=== PATIENT | female | born 1995 | race Two or more races ===

== ENCOUNTER 2017-02-04 18:32 | Inpatient (IN) | payer MEDICAID, OTHER ==
[2017-02-04] MEDS ORDERED: OXYTOCIN 10 UNITS/ML VIAL ONE (19:04)
[2017-02-04] MEDS ORDERED: LIDOCAINE Viscous 2% 15 ML UDCUP ONE (19:04)
[2017-02-04] MEDS ORDERED: MINERAL OIL 25 ML BOT ONE (19:04)
[2017-02-04] MEDS ORDERED: LIDOCAINE 1% (PRES FREE) 30 ML VIAL ONE (19:04)
[2017-02-04] MEDS ORDERED: LACTATED RINGERS 1,000 ML ONE (19:04)
[2017-02-04] MEDS ORDERED: IV START KIT ONE (19:04)
[2017-02-04] MEDS ORDERED: PUMP TUBING ONE (19:05)
[2017-02-04] MEDS ORDERED: SODIUM CHLORIDE 0.9% FLUSH 10 ML ONE (19:05)
[2017-02-04] MEDS ORDERED: DINOPROSTONE 10 MG SUP VG ONE (19:36)
--- NOTE | 2017-02-04 19:53 | PCMAN ---
OB Admission Note - History : 3 Term: 2 : 0 Abortions (S&E): 0 Livin Gestational Age (weeks): 41 Days (#/7): 0 Admit Cervical Dilation:: 2cm Admit Cervical Effacement (%):: 70 Admit Station:: -3 Membrane Status: Intact Contractions: No Contraction Frequency:: q 3-6 min Heart Rate:: 130 Status:: reassuring EFW:: 7 Lbs Summary of Course:: Presented late to care at approx. 26 wks. Dating done by 32 week ultrasound. - Labs Blood Type: A (+) positive Rubella Status: Immune GBS Status: Negative Abnormal Labs: None - Review of Systems 12 point ROS wnl. - Physical Exam General: No Afebrile, No Acute Distress, No Mild Distress, No Moderate Distress , No Severe Distress, No Other Lungs: Clear to Auscultation Bilaterally Cardiovascular: Regular Rate and Rhythm Abdomen: Other (gravid, non-tender, Vtx by u/s done by RN) Extremities: Full ROM - Problems (1) Post-dates Status: Acute Code: O48.0Assessment/Plan: 21 yo @ 41 wks by late 32 wk u/s, presented late to care, here for IOL for postdates. FHTs reassuring, already with some contractions only mildly felt. GBS negative. -will admit for IOL -given unfavorable cervix, will place Cervidil
[2017-02-04 20:30] LABS: HEMOGLOBIN 12.3 gm/l (12.0-16.0); MEAN CELL VOLUME 91.6 fl (81.0-99.0); MEAN CORPUSCULAR HEMOGLOBIN 30.4 pg (27.0-31.0); MEAN CORPUSCULAR HGB CONC 33.2 g/dl (33.0-37.0); RED CELL DISTRIBUTION WIDTH 12.9 % (11.5-14.5)
--- NOTE | 2017-02-04 22:45 | PDOC36 ---
Provider Note Subject: 21 yo @ 41 wks here for IOL for postdates. As she is having contractions on the monitor almost every 2 minutes, I am not able to place any cervical ripening agent, nor start Pitocin. We discussed placing a hammond bulb and pt agrees with mechanical induction approach. SVE 3cm/80%/-2, FHTs reassuring. -hammond bulb with 35ml NS easily placed -will wait until hammond bulb comes out and then consider AROM
[2017-02-04] MEDS ORDERED: OXYTOCIN IN NS 500 ML IV ONE (23:52)
[2017-02-05] MEDS ORDERED: OXYTOCIN IN NS 500 ML IV PRN (08:52)
--- NOTE | 2017-02-05 09:07 | PDOC36 ---
Provider Note Note: SUBJECTIVE: Patient comfortable this morning, hammond bulb fell out this morning. OBJECTIVE: VS: AFVSS FHT: 140s, moderate variability, positive accels, no decels, category I [place]: Mild contractions every 5-10 minutes SVE: 370/-2 posterior ASSESSMENT: 21 yo here for postdates IOL PLAN: Postdates IOL: Hammond now out, Alston Score is 8, will start Pitocin and recheck this afternoon and see if we can AROM.
[2017-02-05] MEDS: LACTATED RINGERS 1,000 ML IV SCH ×3 (10:06→19:19)
[2017-02-05 11:21] VITALS: BMI 27.6
--- NOTE | 2017-02-05 13:34 | PDOC36 ---
Provider Note Note: SUBJECTIVE: Starting to feel contractions OBJECTIVE: VS: AFVSS FHT: Category I [place]: q5 min SVE: DNE ASSESSMENT: 21 yo here for postdates IOL PLAN: Continue pitocin until 3 pm will recheck cervix and AROM if possible.
[2017-02-05] MEDS ORDERED: BLISTEX LIPSTICK 1 EACH TP ONE (16:30)
[2017-02-05] MEDS ORDERED: BLISTEX LIPSTICK 1 EACH TP PRN (17:10)
--- NOTE | 2017-02-05 18:30 | PDOC36 ---
Provider Note Note: SUBJECTIVE: Having painful contractions OBJECTIVE: VS: AFVSS FHT: 150s Category I [place]: q2-3 min SVE: /-2 ASSESSMENT: 21 yo at 41 weeks here for postdates IOL PLAN: On Pitocin, making change. I AROM'd patient. Continue expectant management.
[2017-02-05] MEDS: FENTANYL 100 MCG/2 ML VIAL IV PRN ×2 (19:03→19:10)
[2017-02-05] MEDS ORDERED: FENTANYL 100 MCG/2 ML VIAL ONE (19:03)
[2017-02-05] MEDS ORDERED: OXYTOCIN IN NS 334 ML IV PRN (19:08)
[2017-02-05] MEDS ORDERED: LIDOCAINE 1% (PRES FREE) 30 ML VIAL IF ONE (19:16)
[2017-02-05] MEDS ORDERED: LORAZEPAM 2 MG/ML 1ML SDV IV ONE (19:45)
[2017-02-05] MEDS ORDERED: OXYCODONE HCL 5 MG TABLET PO PRN (20:29)
[2017-02-05] MEDS ORDERED: ACETAMINOPHEN 325 MG TABLET PO PRN (20:29)
[2017-02-05] MEDS ORDERED: LANOLIN 50 APPLIC/7G TUBE TP PRN (20:29)
[2017-02-05] MEDS ORDERED: SENNOSIDES 8.6 MG TABLET PO PRN (20:29)
[2017-02-05] MEDS ORDERED: HYDROCODONE/ACETAMINOPHEN 5/325MG TABLET PO PRN (20:29)
[2017-02-05] MEDS ORDERED: BENZOCAINE/MENTHOL 60 APPLIC/BOT TP PRN (20:29)
[2017-02-05] MEDS ORDERED: LACTATED RINGERS 1,000 ML IV PRN (20:29)
[2017-02-05] MEDS ORDERED: DOCUSATE SODIUM 100 MG CAPSULE PO PRN (20:29)
[2017-02-05] MEDS: IBUPROFEN 600 MG TABLET PO PRN (21:01)
--- NOTE | 2017-02-05 21:52 | PCMDEL ---
Delivery Note - Delivery Delivery (Date): 02/05/17 Delivery (Time): 18:52 Gender: Male Length: 1 ft 8.25 in Position: OA Umbilical Cord: 3 Vessel Delayed Cord Clamping:: < 1-2 min 1 Minute Total: 9 5 Minute Total: 9 Placenta:: Intact EBL:: 300 mL Perineum:: 2nd degree perineal Suture:: 2-0 Vicryl x 2 Anesthesia/Meds:: 1% lidocaine, 100 mcg fentanyl & 1 mg of ativan bc of anxiety during repair Length ROM:: 1 hr Comments:: of a live female in the OA position over an intact perineum. The body easily delivered and the baby was placed on the mother's abdomen where she was attended to by nursing staff. There was delayed cord clamping by 1 minute(s). The placenta was delivered spontaneously and was noted to be intact. A 3 vessel cord was also noted. A repair was performed with 2-0 vicryl. The patient was very anxious was having a lot of trouble relaxing and had to be given 100 mcg of fentanyl and 1 mg of ativan before the repair could be perfomed.
[2017-02-06 06:48] LABS: HEMATOCRIT 28.3 % (37.0-47.0); HEMOGLOBIN 9.4 gm/l (12.0-16.0)
[2017-02-06] MEDS ORDERED: FERROUS SULFATE (65 Fe) 325 MG TABLET PO SCH (09:00)
--- NOTE | 2017-02-06 09:12 | PDOC44 ---
- Subjective Day: 1 Reports Pain Tolerable, Reports , Reports Lochia Light, Reports Tolerating Regular Diet (Pt doing well, desires dc home later today), Denies Nausea, Denies Vomiting, Denies Fever - Objective Temp Pulse Resp BP Pulse Ox 98.1 F 82 16 108/62 02/06/17 09:00 02/06/17 09:00 02/06/17 09:00 02/06/17 09:00 Lab Results 02/06/17 06:10 Hgb 9.4 L D Hct 28.3 L Current Medications Generic Name Dose Route Start Last Admin Trade Name Freq PRN Reason Stop Dose Admin Acetaminophen 325 - 650 mg 02/05/17 20:29 Tylenol PO Q4H PRN Pain (Mild) Acetaminophen/Hydrocodone Bitart 1 - 2 tab 02/05/17 20:29 02/06/17 00:37 [place] 5/325 PO 1 tab Q4H PRN Administration Pain (Moderate) Benzocaine/Menthol 1 applic 02/05/17 20:29 Dermoplast TP PRN PRN Patient Comfort Docusate Sodium 100 mg 02/05/17 20:29 Colace PO DAILY PRN Comfort Emollient Ointment 1 applic 02/05/17 20:29 [id number] TP PRN PRN sore nipples Ferrous Sulfate 325 mg 02/06/17 09:00 Ferrous Sulfate PO BID CLARY Lactated Ringer's 1,000 mls @ 100 mls/hr 02/05/17 20:29 Lactated Ringers IV .Q10H PRN Titrate per clinical situation Ibuprofen 600 mg 02/05/17 20:29 02/05/17 21:01 Motrin PO 600 mg Q6H PRN Administration Pain (Mild) Oxycodone HCl 5 - 10 mg 02/05/17 20:29 Roxicodone PO Q3H PRN Pain (Severe) Senna 17.2 mg 02/05/17 20:29 Senokot PO BEDTIME PRN Comfort Sodium Chloride 10 ml 02/05/17 20:29 Normal Saline 10ml Flush IV PRN PRN IV Flush - Physical Exam General: Afebrile, No Acute Distress Psych/Mental Status: Mood/Affect Appropriate, Judgment/Insight Intact, Bonding Well Neurological: Alert HEENT: Atraumatic, EOMI Lungs: Clear to Auscultation Bilaterally, Normal Air Movement Cardiovascular: Regular Rate and Rhythm, Normal S1, Normal S2 Fundus: Firm, Midline, Below Umbilicus - Problems:Assessment/Plan (1) Normal vaginal delivery Status: AcuteAssessment/Plan: PPD#1, doing well. Routine pp care Desires dc home later today, will dc if infant bili less than/equal to HIR support for dc home (2) Anemia due to acute blood loss Status: AcuteAssessment/Plan: Asx, will start iron BID Disposition: Stable, Anticipate DC to Home
[2017-02-06 15:08] VITALS: BP 110/55
[2017-02-06] MEDS: IBUPROFEN 600 MG TABLET PO PRN (15:20)
== END 2017-02-06 19:32 | disposition home or self-care (01) | DRG 775 ==
LOC: FBC 18:32
PROVIDERS: ADMIT Family Medicine; ATTEND Family Medicine
PROC: 0U7C7ZZ Dilation of Cervix, Via Natural or Artificial Opening (ICD-10-PCS; 2017-02-04)
PROC: 10907ZC Drainage of Amniotic Fluid, Therapeutic from Products of Conception, Via Natural or Artificial Opening (ICD-10-PCS; 2017-02-04)
PROC: 10E0XZZ Delivery of Products of Conception, External Approach (ICD-10-PCS; principal; 2017-02-05)
PROC: 0KQM0ZZ Repair Perineum Muscle, Open Approach (ICD-10-PCS; 2017-02-05)
DX: O48.0 Post-term pregnancy (principal); O70.1 Second degree perineal laceration during delivery; Z37.0 Single live birth; O99.02 Anemia complicating childbirth; D62 Acute posthemorrhagic anemia; Z3A.41 41 weeks gestation of pregnancy